=== PATIENT | female | born 1945 | race Caucasian/White ===

== ENCOUNTER 2017-11-27 08:14 | Inpatient (IN) | payer OTHER ==
[2017-11-27] VITALS (8 sets, daily range): BP systolic 143–170; BP diastolic 59–102
[~2017-11-27] VITALS: Ht 160 cm; Wt 68.0 kg
--- NOTE | ~2017-11-27 | EKG ---
[address] [place] [address] ELECTROCARDIOGRAM REPORT Name: JOSE CARLOS KABA Room #: 354-P [facility]..#: [id number] Admission: 11/27/17 Attend Phys: Mohini Villalta Discharge: Date of : 49 Report #: [id number] THIS REPORT FOR: //name// [facility] ED Test Date: 2017-11-27 Test Time: 08:20:29 Pat Name: JOSE CARLOS KABA Department: Room: [facility] Gender: F [employer]: ELIDA : 1945 Requested By: David Izquierdo Order Number: [id number] MD: Darien Garduno Measurements Intervals [place] Rate: 69 P: 21 KS: 186 QRS: -41 QRSD: 88 T: 64 QT: 415 QTc: 445 Interpretive Statements Sinus rhythm Abnormal R-wave progression, late transition No previous ECG available for comparison Electronically Signed On 11-28-2017 7:34:28 CDT by Darien Garduno [email or web address] <ELECTRONICALLY SIGNED> By: Darien Garduno MD, [facility] 11/28/17 0734 [id number] Darien Garduno MD, FACC /EPI
[2017-11-27 08:38] LABS: ABSOLUTE NEUTROPHILS 7.3 thou/uL (1.4-8.2); BASOPHILS 0.6 % (0.0-2.0); EOSINOPHILS 1.1 % (0.0-3.0); HEMATOCRIT 43.9 % (37.0-47.0); LYMPHOCYTES 14.3 % (24.0-44.0); MCH 29.3 pg (26.0-34.0); MCHC 34.2 g/dL (28.0-37.0); MCV 85.8 fL (80.0-100.0); MONOCYTES 5.6 % (1.0-8.0); PLATELET COUNT 215 thou/uL (150-400); POLYS 78.4 % (36.0-66.0); RBC 5.12 mil/uL (4.20-5.00); WBC 9.3 thou/uL (4.0-11.0)
[2017-11-27 08:48] LABS: APTT 25.4 Seconds (24.5-32.8)
[2017-11-27 08:49] LABS: ANION GAP 9 mmol/L (7-16); BUN 15 mg/dL (7-18); CALCIUM 9.9 mg/dL (8.5-10.1); CHLORIDE 99 mmol/L (98-107); CO2 28 mmol/L (21-32); CREATININE 0.8 mg/dL (0.6-1.0); GLUCOSE 125 mg/dL (74-106); POTASSIUM 3.8 mmol/L (3.5-5.1); SODIUM 136 mmol/L (136-145)
[2017-11-27 08:55] LABS: MAGNESIUM 1.7 mg/dL (1.8-2.4); SGOT 18 U/L (15-37); SGPT 28 U/L (30-65); TOTAL BILIRUBIN 0.3 mg/dL (<0.1-1.0); TOTAL PROTEIN 8.2 g/dL (6.4-8.2); TROPONIN-I < 0.04 ng/mL (<0.06)
[2017-11-27] MEDS ORDERED: CHLORTHALIDONE25 MG PO (10:13)
[2017-11-27 11:10] LABS: CHOLESTEROL 265 mg/dL (<200); HDL CHOLESTEROL 58 mg/dL (>40); LDL CHOLESTEROL 177 mg/dL (<100); TC:HDL 4.6 Ratio (Not establshd); TRIGLYCERIDE 152 mg/dL (<150); VLDL 30 mg/dL (<40)
[2017-11-27 11:35] LABS: TSH 5.593 uIU/mL (0.358-3.740)
[2017-11-28 03:06] LABS: ALBUMIN 3.6 g/dL (3.4-5.0); ANION GAP 10 mmol/L (7-16); BUN 17 mg/dL (7-18); CALCIUM 9.2 mg/dL (8.5-10.1); CHLORIDE 99 mmol/L (98-107); CO2 27 mmol/L (21-32); CREATININE 0.8 mg/dL (0.6-1.0); GLUCOSE 118 mg/dL (74-106); PHOSPHORUS 4.3 mg/dL (2.5-4.9); POTASSIUM 3.1 mmol/L (3.5-5.1); SODIUM 136 mmol/L (136-145); TROPONIN-I < 0.04 ng/mL (<0.06)
[2017-11-28 04:15] VITALS: BP 136/74
[2017-11-28 07:45] VITALS: BP 134/85
[2017-11-28] MEDS ORDERED: NORVASC10 MG PO (08:03)
[2017-11-28] MEDS ORDERED: ASPIR 8181 MG PO (08:04)
[2017-11-28 08:57] VITALS: BP 134/85
[2017-11-28 11:00] VITALS: BP 144/86
[2017-11-28 11:43] VITALS: BP 134/85
== END 2017-11-28 11:42 | disposition home or self-care (01) | DRG 313 ==
LOC: ER 08:14 → EROBS 09:29 → 3W 09:29
PROVIDERS: Emergency Medicine; Hospitalist
DX: R07.89 Other chest pain (principal); I10 Essential (primary) hypertension; E83.42 Hypomagnesemia; K21.9 Gastro-esophageal reflux disease without esophagitis; Z88.8 Allergy status to other drugs, medicaments and biological substances
CPT/HCPCS: 10879